=== PATIENT | male | born 2000 | race Caucasian/White ===

== ENCOUNTER 2020-04-21 17:55 | Emergency (ER) | payer BC ==
[~2020-04-21 17:55] MED LIST: Iopamidol-370 76% 500 ML 1 ML ONE
[2020-04-21] MEDS ORDERED: Ondansetron PF 4 MG/2 ML Vial ONE (18:15)
[2020-04-21] MEDS ORDERED: Morphine 4 MG/ML VIAL ONE (18:16)
[2020-04-21 18:26] LABS: #Eosinphils 0.4 thou/uL (0.0-0.7); #Lymphocytes 2.1 thou/uL (1.20-3.40); #Monocytes 0.6 thou/uL (0.11-0.59); #Neutrophils 6.8 thou/uL (1.40-6.50); %Basophils 0.3 % (0.0-1.0); %Eosinophils 4.2 % (0.0-10.0); %Lymphocytes 20.9 % (21.0-51.0); %Monocytes 6.3 % (0.0-10.0); %Neutrophils 68.2 % (42.0-75.0); Hemoglobin 13.9 g/dL (14.0-18.0); Mean Corpuscular HGB CONC 32.2 g/dL (32.0-36.0); Mean Corpuscular Hemoglobin 25.7 pg (27.0-31.0); Mean Corpuscular Volume 79.6 fL (78.0-98.0); Mean Platelet Volume 8.2 fL (7.4-10.4); Platelet Count 281 thou/uL (130-400); RBC Distribution Width 13.6 % (11.5-14.5); Red Blood Cell (RBC) Count 5.42 mill/uL (4.70-6.10)
[2020-04-21 18:48] LABS: ALT (SGPT) 49 U/L (8-55); AST (SGOT) 27 U/L (5-34); Albumin 4.6 g/dL (3.5-5.0); Alkaline Phosphatase 91 U/L (40-110); Anion Gap 16 mmol/L (10-20); BUN (Urea Nitrogen) 10 mg/dL (8.9-20.6); Bilirubin, Total 0.3 mg/dL (0.2-1.2); Calc. Creatinine Clearance 0 mL/min (70-130); Calcium 9.3 mg/dL (7.8-10.44); Carbon Dioxide 23 mmol/L (22-29); Chloride 104 mmol/L (98-107); Estimated GFR-MDRD Greater than 90; Globulin 2.7 g/dL (2.4-3.5); Glucose 89 mg/dL (70-105); Lipase 36 U/L (8-78); Potassium 3.9 mmol/L (3.5-5.1); Protein, Total 7.3 g/dL (6.0-8.3); Sodium 139 mmol/L (136-145)
[2020-04-21 18:54] LABS: Bilirubin Negative (Negative); Blood, Urine Negative (Negative); Clarity Clear (Clear); Glucose, Urine (Dipstick) Normal (Negative); Ketone, Urine 10 mg/dL (Negative); Leukocyte Negative Leu/uL (Negative); Nitrite Negative (Negative); Protein, Urine (Dipstick) 10 mg/dL (Neg-Trace); Specific Gravity, Urine 1.029 (1.002-1.036); Urobilinogen Normal mg/dL (Less than 2); pH, Urine 6.5 (5.0-9.0)
[2020-04-21] MEDS ORDERED: Ketorolac Tromethamine 30 MG/ML VIAL ONE (19:11)
--- NOTE | 2020-04-21 19:42 | CT ---
CT ABDOMEN AND PELVIS WITH IV CONTRAST: 04/21/20 INDICATIONS: Abdominal pain. FINDINGS: Lung bases clear. Liver, spleen, and pancreas unremarkable. Stomach and duodenum unremarkable. Adrenal glands and kidneys unremarkable. Small bowel loops normal caliber and unremarkable. The appendix is identified and appears unremarkable. Colon is unremarkable. Tiny diverticula are seen in the left colon and sigmoid. No mass, adenopathy, or free fluid. Urinary bladder is mildly distended and unremarkable. Osseous str uctures are unremarkable. IMPRESSION: No acute intra-abdominal process identified. POS: AGW
[2020-04-21 21:12] LABS: Iron 43 ug/dL (65-175); Iron Binding Capacity, Total 495 mcg/dL (261-462)
== END 2020-04-21 20:17 | disposition home or self-care (01) ==
LOC: ERS 17:55
DX: R10.9 Unspecified abdominal pain (principal); R10.812 Left upper quadrant abdominal tenderness; R10.814 Left lower quadrant abdominal tenderness; F41.9 Anxiety disorder, unspecified
CPT/HCPCS: 74177; 80053; 81003; 83540; 83550; 83690; 85025; 96361; 96374; 96375; J1885; J2270; J2405; Q9967

== ENCOUNTER 2020-04-26 17:17 | Emergency (ER) | payer BC ==
[2020-04-26 18:10] LABS: #Eosinphils 0.2 thou/uL (0.0-0.7); #Lymphocytes 1.2 thou/uL (1.20-3.40); #Monocytes 1.1 thou/uL (0.11-0.59); #Neutrophils 13.5 thou/uL (1.40-6.50); %Basophils 0.2 % (0.0-1.0); %Eosinophils 1.4 % (0.0-10.0); %Lymphocytes 7.2 % (21.0-51.0); %Monocytes 6.6 % (0.0-10.0); %Neutrophils 84.6 % (42.0-75.0); Hemoglobin 13.6 g/dL (14.0-18.0); Mean Corpuscular HGB CONC 31.1 g/dL (32.0-36.0); Mean Corpuscular Hemoglobin 24.2 pg (27.0-31.0); Mean Platelet Volume 8.5 fL (7.4-10.4); Platelet Count 302 thou/uL (130-400); RBC Distribution Width 13.7 % (11.5-14.5); White Blood Cell (WBC) Count 15.9 thou/uL (4.8-10.8)
[2020-04-26] MEDS ORDERED: Morphine 4 MG/ML VIAL ONE (18:10)
[2020-04-26] MEDS ORDERED: Ketorolac Tromethamine 30 MG/ML VIAL ONE (18:11)
[2020-04-26] MEDS ORDERED: Ondansetron PF 4 MG/2 ML Vial ONE (18:11)
[2020-04-26 18:37] LABS: ALT (SGPT) 45 U/L (8-55); AST (SGOT) 34 U/L (5-34); Albumin 4.6 g/dL (3.5-5.0); Alkaline Phosphatase 78 U/L (40-110); Anion Gap 18 mmol/L (10-20); BUN (Urea Nitrogen) 16 mg/dL (8.9-20.6); Bilirubin, Total 0.4 mg/dL (0.2-1.2); Calc. Creatinine Clearance 0 mL/min (70-130); Calcium 9.3 mg/dL (7.8-10.44); Carbon Dioxide 21 mmol/L (22-29); Chloride 103 mmol/L (98-107); Estimated GFR-MDRD Greater than 90; Globulin 2.7 g/dL (2.4-3.5); Glucose 92 mg/dL (70-105); Lipase 44 U/L (8-78); Potassium 3.8 mmol/L (3.5-5.1); Protein, Total 7.3 g/dL (6.0-8.3); Sodium 138 mmol/L (136-145)
[2020-04-26 18:51] LABS: Bacteria/HPF None Seen HPF (None Seen); Bilirubin Negative (Negative); Blood, Urine Negative (Negative); Clarity Clear (Clear); Glucose, Urine (Dipstick) Normal (Negative); Ketone, Urine 20 mg/dL (Negative); Leukocyte Negative Leu/uL (Negative); Nitrite Negative (Negative); Protein, Urine (Dipstick) 30 mg/dL (Neg-Trace); RBC/HPF 0-3 HPF (0-3); Specific Gravity, Urine 1.032 (1.002-1.036); Squamous Epithelial None Seen HPF (0-3); Urobilinogen Normal mg/dL (Less than 2); WBC/HPF 0-3 HPF (0-3)
--- NOTE | 2020-04-26 20:30 | CT ---
Abdomen pelvis CT: 04/26/2020 COMPARISON: 04/21/2020 HISTORY: Worsening left lower quadrant pain, assess for diverticulitis TECHNIQUE: Axial CT imaging at 5 mm intervals from the lung bases through the pubic symphysis with IV and oral contrast. Coronal and sagittal reformatted imaging obtained. FINDINGS: The imaged lung bases are unremarkable. No free intraperitoneal air. Nonspecific trace free fluid noted within the pelvis. The liver, gallbladder, spleen, pancreas, adrenal glands, and kidneys are unremarkable. The appendix is normal. No evidence for bowel inflammatory change or bowel obstruction. No evidence for diverticulitis. The vascular structures of the abdomen/pelvis appear patent. No abdominal or pelvic lymphadenopathy is seen. No acute osseous abnormality is noted. IMPRESSION: Trace free fluid in the pelvis-otherwise unremarkable.
--- NOTE | 2020-04-28 12:56 | EKG ---
Test Reason : ABDOMINALPAIN Blood Pressure : / mmHG Vent. Rate : 068 BPM Atrial Rate : 068 BPM P-R Int : 136 ms QRS Dur : 086 ms QT Int : 382 ms P-R-T Axes : 033 028 029 degrees QTc Int : 406 ms Normal sinus rhythm Normal ECG Confirmed by MINISTERIO ROWELL ([id number]), brands editor CORTNEY BORDEN ([id number] on 04/28/2020 12:56:20 PM Referred By: JOSE Confirmed By:MINISTERIO Lee
== END 2020-04-26 20:58 | disposition home or self-care (01) ==
LOC: ERS 17:17
DX: R10.32 Left lower quadrant pain (principal); R11.2 Nausea with vomiting, unspecified; F41.9 Anxiety disorder, unspecified; Z79.899 Other long term (current) drug therapy
CPT/HCPCS: 36415; 74177; 80053; 81003; 81015; 83605; 83690; 85025; 93005; 96361; 96374; 96375; J1885; J2270; J2405

== ENCOUNTER 2022-01-26 10:09 | Emergency (ER) | payer OTHER, SELFPAY ==
[2022-01-26] MEDS ORDERED: Ondansetron PF 4 MG/2 ML Vial ONE (11:30)
[2022-01-26] MEDS ORDERED: Dexamethasone 4 mg/ml Vial ONE (11:30)
[2022-01-26 11:49] LABS: #Lymphocytes 1.2 thou/uL (1.20-3.40); #Monocytes 1.2 thou/uL (0.11-0.59); #Neutrophils 8.6 thou/uL (1.40-6.50); %Basophils 0.2 % (0.0-1.0); %Eosinophils 0.2 % (0.0-10.0); %Lymphocytes 10.7 % (21.0-51.0); %Monocytes 10.7 % (0.0-10.0); %Neutrophils 78.3 % (42.0-75.0); Hemoglobin 15.8 g/dL (14.0-18.0); Mean Corpuscular HGB CONC 34.1 g/dL (32.0-36.0); Mean Corpuscular Hemoglobin 30.5 pg (27.0-31.0); Mean Corpuscular Volume 89.6 fL (78.0-98.0); Mean Platelet Volume 7.8 fL (7.4-10.4); Platelet Count 189 thou/uL (130-400); RBC Distribution Width 11.6 % (11.5-14.5); Red Blood Cell (RBC) Count 5.18 mill/uL (4.70-6.10)
[2022-01-26 12:02] LABS: ALT (SGPT) 68 U/L (8-55); AST (SGOT) 46 U/L (5-34); Albumin 4.5 g/dL (3.5-5.0); Alkaline Phosphatase 108 U/L (40-110); Anion Gap 14 mmol/L (10-20); BUN (Urea Nitrogen) 10 mg/dL (8.9-20.6); Bilirubin, Total 0.6 mg/dL (0.2-1.2); CK (CPK) 55 U/L (30-200); Calc. Creatinine Clearance 0 mL/min (70-130); Calcium 9.7 mg/dL (7.8-10.44); Carbon Dioxide 25 mmol/L (22-29); Chloride 102 mmol/L (98-107); Globulin 2.8 g/dL (2.4-3.5); Glucose 94 mg/dL (70-105); Protein, Total 7.3 g/dL (6.0-8.3); Sodium 137 mmol/L (136-145)
[2022-01-26] MEDS ORDERED: Ketorolac Tromethamine 30 MG/ML VIAL ONE (12:02)
[2022-01-26] MEDS ORDERED: Acetaminophen 500 MG TAB ONE (12:02)
[2022-01-26] MEDS ORDERED: Lidocaine Viscous Sol 2% 15 ml UD Cup ONE (12:57)
[2022-01-26] MEDS ORDERED: Mag-Al 1200 mg/1200 mg/30 ML UDCUP ONE (12:57)
== END 2022-01-26 13:56 | disposition home or self-care (01) ==
LOC: ERS 10:09
DX: U07.1 COVID-19 (principal); E86.0 Dehydration
CPT/HCPCS: 70360; 71045; 80053; 82550; 85025; 87081; 87430; 87804; 93005; 96361; 96374; 96375; J1100; J1885; J2405